=== PATIENT | female | born 1985 | race Two or more races ===

== ENCOUNTER 2024-08-22 07:20 | Day surgery (SDC) | payer OTHER, MEDICAID, SELFPAY ==
[2024-08-17 12:12] VITALS: BMI 31.6
[2024-08-17 13:14] LABS: Basophils % (Auto) 1 % (0-2.5); Eosinophils # (Auto) 0.1 Thou/mm3 (0.0-0.5); Eosinophils % (Auto) 2 % (0-10); Hematocrit 38.7 % (36.0-46.0); Hemoglobin 12.7 g/dL (12.0-16.0); Immature Granulocytes % (Auto) 0 % (0-0); Immature Granulocytes Auto 0.02 Thou/mm3 (0.00-0.00); Lymphocytes # (Auto) 1.8 Thou/mm3 (1.0-4.8); Lymphocytes % (Auto) 30 % (10-50); Mean Corpuscular HGB Conc 32.8 g/dl (31.0-37.0); Mean Corpuscular Volume 82 fL (80-100); Monocytes # (Auto) 0.3 Thou/mm3 (0.0-0.8); Monocytes % (Auto) 5 % (0-12); Neutrophils # (Auto) 3.7 Thou/mm3 (1.8-7.7); Neutrophils % (Auto) 61 % (37-80); Nucleated Red Blood Cell % 0 /100 WBC (0); Platelet Count 264 Thou/mm3 (140-440); RDW Standard Deviation 40.3 fL (36.4-46.3); White Blood Count 6.1 Thou/mm3 (3.6-11.0)
[2024-08-17 13:23] LABS: Partial Thromboplastin Time 24.3 Seconds (22.0-36.0); Prothrombin Time 11.1 Seconds (9.0-12.2)
[2024-08-17 13:31] LABS: Alanine Aminotransferase 18 U/L (10-49); Albumin, Serum 4.4 gm/dL (3.5-5.0); Albumin/Globulin Ratio 1.7 (1.2-2.2); Alkaline Phosphatase 80 U/L (46-116); Anion Gap 4 (7-16); Aspartate Amino Transferase 18 U/L (0-34); BUN/Creatinine Ratio 13 Ratio (12-20); Bilirubin,Total 0.2 mg/dL (0.3-1.2); Blood Urea Nitrogen 10 mg/dL (9-23); Calcium 9.4 mg/dL (8.3-10.6); Calcium (Corrected) 9.4 mg/dL (8.5-10.1); Carbon Dioxide 30.4 mMol/L (20.0-31.0); Chloride 104 mMol/L (98-107); Creatinine (Component) 0.8 mg/dL (0.6-1.3); Estimated Creatinine Clearance 108.1 mL/min (>60); Globulin 2.6 gm/dL (2.3-3.5); Glucose 96 mg/dL (74-106); Osmolality,Calculated 274 (275-295); Potassium 3.7 mMol/L (3.4-5.1); Sodium 138 mMol/L (136-145); eGFR > 60 See Note
[2024-08-22] VITALS (11 sets, daily range): BP systolic 108–146; BP diastolic 68–83; PULSE 74–88; RESP 12–19; TEMP 36.2–36.8; O2SAT 95–98; BMI 31.4
[2024-08-22] MEDS: RINGERS LACTATED 500 ML 500 ML 20 ML IV (08:03)
--- NOTE | 2024-08-22 10:35 | SUR.PHASEI ---
1035 Patient arrived to recovery sleeping in [facility], able to arouse with verbal prompting then patient drifts back to sleep, oxygen therapy initiated oxy mask 6L, breathing unlabored, vital signs stable, denies pain, dressing intact to left neck; dissolvable sutures, adaptic, gauze, medipore tape, no bleeding noted, lung sounds clear upon auscultation, bilateral radial pulses present when palpated, report received from Elmira GONZALEZ and Dr. Villafuerte
--- NOTE | 2024-08-22 10:37 | PD.SUROPNT ---
Date of Procedure 08/22/24 Pre Op Diagnosis Lipoma of the neck Post Op Diagnosis Same Procedure Excision of the lipoma on the Findings Patient is found to have no encapsulated lipoma but rather piecemeal fatty tissue Procedure Description After the patient was brought to the operating room she was given sedation with anesthesiologist. Then she was kept in supine position with the head turned to the right side. The right neck including the side and posterior portion was washed with ChloraPrep solution and draped in a sterile manner. Timeout was performed. Then injected 1% Xylocaine with epinephrine over the mass which was about 5 cm in diameter centimeter incision along the skin crease and using Rosa retractors I dissected out the lesion in the subcutaneous tissue. I made sure that I am staying very superficial and not going to the deep structures looking for additional fatty tissues which may result in injury to the accessory nerve. Bleeding points were controlled with cautery. The subcutaneous tissue was closed with 3-0 chromic and then I injected some more local anesthesia the skin was closed with 4-0 Monocryl subcuticular stitches. Dressing was applied with Adaptic 4 x 4 gauze. Patient tolerated the procedure well. Anesthesia MAC Pathology / specimen Other Estimated Blood Loss 10 Surgeon Shante Seaman MD Surgical Staff Operation Date: 08/22/24 10:00 Case Staff Anesthesiologist: Reese Villafuerte
--- NOTE | 2024-08-22 11:00 | SUR.PHASEI ---
1100 patient continues to be drowsy able to arouse and talk with staff then drifts back to sleep, requires oxygen therapy at this time
--- NOTE | 2024-08-22 11:30 | SUR.PHASEI ---
1130 patient waking up more, continuing to wean patient off oxygen, patient is taking small bites of ice chips
--- NOTE | 2024-08-22 12:24 | SUR.PHASEII ---
1224 Patient meets discharge criteria from recovery, awake and alert, breathing unlabored, vital signs stable, denies pain, dressing intact; no bleeding noted, patient drinking 7up; tolerating well, denies nausea, patient assisted with dressing into her clothing by her , discharge instructions given to patient and patients , signed discharge instructions. Patient given all her belongings prior to discharge, transported via wheelchair and left in a private vehicle
== END 2024-08-22 12:24 | disposition home or self-care (01) ==
PROVIDERS: PCP Family Medicine; Referring Provider Surgery; Visit Provider Surgery
PROC: (CPT 21552; principal; 2024-08-22 10:00)
DX: D17.0 Benign lipomatous neoplasm of skin and subcutaneous tissue of head, face and neck (principal)
CPT/HCPCS: 21552; 36415; 80053; 85025; 85610; 85730; A4649; J1200; J2250; J2704; J3010; J3490; J7120